=== PATIENT | male | born 2000 | race Caucasian/White ===

== ENCOUNTER → 2018-04-02 | Outpatient (CLI) | payer OTHER ==
[~2018-04-02] MED LIST: BENTYL10 MG PO; MELATONIN5 M1 PO; NO HOME MEDS; NOHOMEMEDS
== END | disposition home or self-care (01) ==
LOC: CDC 15:35
DX: I45.10 Unspecified right bundle-branch block (principal); R00.1 Bradycardia, unspecified; I49.9 Cardiac arrhythmia, unspecified
CPT/HCPCS: 93000